=== PATIENT | female | born 1990 | race American Indian/Alaskan Native ===

== ENCOUNTER 2016-11-01 06:40 | Emergency (ER) | payer SELFPAY ==
[2016-11-01 07:06] VITALS: BP 149/101
== END 2016-11-01 07:01 | disposition left against medical advice (07) ==
LOC: ED 06:40
DX: S91.312A Laceration without foreign body, left foot, initial encounter (principal); W45.8XXA Other foreign body or object entering through skin, initial encounter; Y93.9 Activity, unspecified; Y92.9 Unspecified place or not applicable; Y99.9 Unspecified external cause status; Z53.21 Procedure and treatment not carried out due to patient leaving prior to being seen by health care provider